=== PATIENT | female | born 1950 | race Caucasian/White ===

== ENCOUNTER → 2016-07-21 | Outpatient (CLI) | payer MEDICARE ==
[~2016-07-21] MED LIST: AMIT10TA PO; ASPI-650 PO; ASPI325T80 PO; DIAZ5TAB4 PO; GABA PO; LEVO112T2 PO; MAGN300C PO; MELA1TAB7 PO; OMEP20TA62 PO; SERT100T5 PO
== END | disposition home or self-care (01) ==
LOC: CFH 11:04
PROVIDERS: ATTEND Nurse Practitioner Primary Care
DX: R82.90 Unspecified abnormal findings in urine (principal); R53.83 Other fatigue; E55.9 Vitamin D deficiency, unspecified; E78.2 Mixed hyperlipidemia; E03.9 Hypothyroidism, unspecified; K21.9 Gastro-esophageal reflux disease without esophagitis; F06.4 Anxiety disorder due to known physiological condition; E88.81 Metabolic syndrome and other insulin resistance; L03.90 Cellulitis, unspecified; R01.1 Cardiac murmur, unspecified
CPT/HCPCS: 74000

== ENCOUNTER 2016-08-23 10:55 | Emergency (ER) | payer MEDICARE ==
[~2016-08-23] VITALS: Ht 167.6 cm; Wt 70.8 kg
[2016-08-23] MEDS ORDERED: SODIUM CHLORIDE FLUSH 10ML SYR IVF ONE (11:30)
[2016-08-23 11:47] LABS: BLOOD UREA NITROGEN 17 mg/dL (7-18)
[2016-08-23 12:13] VITALS: BP 138/95
== END 2016-08-23 13:39 | disposition home or self-care (01) ==
LOC: ED 13:20
DX: R20.9 Unspecified disturbances of skin sensation (principal); R42 Dizziness and giddiness
CPT/HCPCS: 36415; 70450; 80048; 81003; 82040; 85025; 85610; 85730; 93005; 99285

== ENCOUNTER → 2017-03-29 | Outpatient (CLI) | payer MEDICARE | END | disposition home or self-care (01) | LOC: CFH 13:53 | PROVIDERS: ATTEND Nurse Practitioner Primary Care | DX: M54.2 Cervicalgia (principal); R53.83 Other fatigue; E55.9 Vitamin D deficiency, unspecified; E78.2 Mixed hyperlipidemia; E03.9 Hypothyroidism, unspecified; E88.81 Metabolic syndrome and other insulin resistance; R82.90 Unspecified abnormal findings in urine; K21.9 Gastro-esophageal reflux disease without esophagitis; F06.4 Anxiety disorder due to known physiological condition; R01.1 Cardiac murmur, unspecified; N39.0 Urinary tract infection, site not specified; R60.9 Edema, unspecified; M79.643 Pain in unspecified hand; M25.561 Pain in right knee; R20.2 Paresthesia of skin; Z79.899 Other long term (current) drug therapy | CPT/HCPCS: 72040 ==

== ENCOUNTER 2018-05-22 09:19 | Emergency (ER) | payer MEDICARE ==
[~2018-05-22] VITALS: Ht 165.1 cm; Wt 70.0 kg
[~2018-05-22 09:19] MED LIST changes: +SERT100T32 PO; -SERT100T5 PO
--- NOTE | 2018-05-22 09:34 | NUR ---
CONTACT WITH PT, 67 YR OLD FEMALE HERE WITH C/O "I JUST FEEL EXTREMELY STRANGE, IT FEELS NEUROLOGICAL, MY WHOLE BODY FEELS COLD AND CLAMMY, I SHAKE AND JERK. I CANT STAND UP TOO WELL, I FEEL LIKE I'M IN A DREAM LIKE STATE" BEGAN 0730 OR 0800 THIS AM. WHEN WOKE UP "FELT WEIRD"
--- NOTE | 2018-05-22 09:37 | NUR ---
DR BERRIOS AT BEDSIDE TO EVAL PT
--- NOTE | 2018-05-22 09:42 | NUR ---
REPORT TO CAMERON BOO
--- NOTE | 2018-05-22 09:46 | NUR ---
RECEIVED REPORT FROM RAJEEV KRISHNAUMRTHY. [facility] MONITORS APPLIED.
--- NOTE | 2018-05-22 10:00 | NUR ---
PT TAKEN TO CT IN STABLE CONDITION. DOES NOT WANT MEDICATIONS FOR [place] AT THIS TIME.
[2018-05-22 10:20] LABS: BASOPHILS # (AUTO) 0.01 x10^3/uL (0-0.1); BASOPHILS % (AUTO) 0 % (0-1); EOSINOPHILS # (AUTO) 0.06 x10^3/uL (0-0.4); EOSINOPHILS % (AUTO) 1 % (1-7); LYMPHOCYTES % (AUTO) 18 % (22-44); MD NO; MEAN CORPUSCULAR HEMOGLOBIN 30.7 pg (27.0-34.8); MEAN CORPUSCULAR HGB CONC 34.3 g/dL (32.4-35.8); MEAN CORPUSCULAR VOLUME 89.7 fL (80-100); MEAN PLATELET VOLUME 7.8 fL (7.4-10.4); MONOCYTES # (AUTO) 0.25 x10^3/uL (0.2-0.8); MONOCYTES % (AUTO) 5 % (2-9); NEUTROPHILS % (AUTO) 76 % (42-75); PLATELET COUNT 208 x10^3/uL (130-400); RED BLOOD COUNT 4.65 x10^6/uL (3.82-5.3); RED CELL DISTRIBUTION WIDTH 13.4 % (9.6-15.2)
--- NOTE | 2018-05-22 10:24 | NUR ---
PT STATES UNABLE TO PROVIDE UA SAMPLE AT THIS TIME.
[2018-05-22 10:33] LABS: ALBUMIN 3.7 g/dL (3.4-5.0); ANION GAP 8 mmol/L (5-15); CHLORIDE 108 mmol/L (98-107)
[2018-05-22 10:39] LABS: ALANINE AMINOTRANSFERASE 26 U/L (12-78); ALKALINE PHOSPHATASE 63 U/L (45-117); BILIRUBIN,TOTAL 0.5 mg/dL (0.2-1.0); CREATININE 0.72 mg/dL (0.55-1.02); TOTAL PROTEIN 7.2 g/dL (6.4-8.2); TROPONIN I < 0.015 ng/mL (0.000-0.045)
[2018-05-22 10:44] LABS: THYROID STIMULATING HORMONE 0.016 mIU/L (0.358-3.740)
--- NOTE | 2018-05-22 11:13 | NUR ---
SPOKE W/ MRI WHO STATES THEY CANNOT PERFORM MRI AT THIS TIME A/C IS BROKEN AND ROOM IS 100 DEGREES F AND MRI MACHINE WILL NOT FUNCTION AT HIGH TEMPS. PT AND ERP AWARE.
[2018-05-22 11:17] LABS: MICROSCOPIC AUTO
[2018-05-22 11:21] LABS: CULTURE INDICATED? YES
[2018-05-22] MEDS ORDERED: DIPHENHYDRAMINE 50 MG/ML, 1ML ONE (11:40)
[2018-05-22] MEDS ORDERED: KETOROLAC 30 MG/1 ML ONE (11:40)
[2018-05-22] MEDS ORDERED: METOCLOPRAMIDE 5 MG/ML, 2ML ONE (11:40)
[2018-05-22 11:50] VITALS: BP 145/86
--- NOTE | 2018-05-22 11:51 | NUR ---
PT TAKEN TO MRI IN STABLE CONDITION.
[2018-05-22] MEDS ORDERED: KETOROLAC 30 MG/1 ML IVPush ONE (12:00)
[2018-05-22] MEDS ORDERED: DIPHENHYDRAMINE 50 MG/ML, 1ML IVPush ONE (12:00)
[2018-05-22] MEDS ORDERED: SODIUM CHLORIDE 0.9% 1,000ML IVBOLUS ONE (12:00)
[2018-05-22] MEDS ORDERED: METOCLOPRAMIDE 5 MG/ML, 2ML IVPush ONE (12:00)
== END 2018-05-22 13:47 | disposition home or self-care (01) ==
LOC: ED 11:44
DX: G43.119 Migraine with aura, intractable, without status migrainosus (principal)
CPT/HCPCS: 36415; 70450; 70551; 71045; 80053; 81001; 83735; 84439; 84443; 84484; 85025; 87086; 93005; 96361; 96374; 96375; 99284; J1200; J1885; J2765; J7030

== ENCOUNTER → 2018-07-25 | Outpatient (CLI) | payer MEDICARE | END | disposition home or self-care (01) | LOC: CFH 12:42 | PROVIDERS: ATTEND Physician Assistant | DX: R00.2 Palpitations (principal) | CPT/HCPCS: 78452; 93017; A9502 ==

== ENCOUNTER 2020-05-28 13:26 | Emergency (ER) | payer MEDICARE ==
[~2020-05-28] VITALS: Ht 165.1 cm; Wt 69.4 kg
[~2020-05-28 13:26] MED LIST changes: -ASPI-650 PO; +ASPI325T20 PO
[2020-05-28] MEDS ORDERED: ONDANSETRON 2MG/ML, 2ML IVPush ONE (14:00)
[2020-05-28] MEDS ORDERED: SODIUM CHLORIDE FLUSH 10ML SYR IVF ONE (14:00)
[2020-05-28] MEDS ORDERED: HYDROmorphone 1 MG/ML, 1ML INJ IV ONE (14:00)
[2020-05-28] MEDS ORDERED: ONDANSETRON 2MG/ML, 2ML ONE (14:06)
[2020-05-28] MEDS ORDERED: HYDROmorphone 1 MG/ML, 1ML INJ ONE (14:06)
[2020-05-28 14:16] LABS: MICROSCOPIC INDICATED
[2020-05-28 14:26] LABS: BASOPHILS % (AUTO) 1 % (0-1); EOSINOPHILS % (AUTO) 1 % (1-7); LYMPHOCYTES % (AUTO) 12 % (22-44); MD NO; MEAN CORPUSCULAR HEMOGLOBIN 29.8 pg (27.0-34.8); MEAN CORPUSCULAR HGB CONC 33.4 g/dL (32.4-35.8); MEAN PLATELET VOLUME 8.5 fL (7.4-10.4); MONOCYTES % (AUTO) 6 % (2-9); NEUTROPHILS % (AUTO) 81 % (42-75); PLATELET COUNT 183 x10^3/uL (130-400); RED BLOOD COUNT 4.49 x10^6/uL (3.82-5.3); RED CELL DISTRIBUTION WIDTH 13.7 % (9.6-15.2)
[2020-05-28 14:33] LABS: ALANINE AMINOTRANSFERASE 18 U/L (12-78); ALBUMIN 3.6 g/dL (3.4-5.0); ANION GAP 6 mmol/L (5-15); CALCIUM 9.1 mg/dL (8.5-10.1); CHLORIDE 105 mmol/L (98-107); CREATININE 1.09 mg/dL (0.55-1.02)
[2020-05-28 14:35] LABS: ALKALINE PHOSPHATASE 75 U/L (45-117); BILIRUBIN,TOTAL 0.9 mg/dL (0.2-1.0); TOTAL PROTEIN 7.5 g/dL (6.4-8.2)
[2020-05-28] MEDS ORDERED: OMNIPAQUE 350 MG/ML, 100ML BOTTLE ONE (15:22)
[2020-05-28] MEDS ORDERED: CEFTRIAXONE 1,000 MG in DEXTROSE 5% 50 ML IVPB ONE (16:00)
[2020-05-28 16:28] VITALS: BP 132/72
== END 2020-05-28 16:29 | disposition home or self-care (01) ==
LOC: ED 14:44
DX: K57.32 Diverticulitis of large intestine without perforation or abscess without bleeding (principal); N30.00 Acute cystitis without hematuria; G43.909 Migraine, unspecified, not intractable, without status migrainosus
CPT/HCPCS: 36415; 74177; 80053; 81001; 83690; 85025; 87040; 87086; 96365; 96375; 99285; J0696; J1170; J2405; Q9967

== ENCOUNTER → 2020-06-22 | Outpatient (CLI) | payer MEDICARE | END | disposition home or self-care (01) | LOC: RAD 14:30 | PROVIDERS: ATTEND Nurse Practitioner Primary Care | DX: R06.2 Wheezing (principal) | CPT/HCPCS: 71046 ==